=== PATIENT | female | born 1985 | race Caucasian/White ===

== ENCOUNTER 2017-02-03 05:07 | Day surgery (SDC) | payer MEDICAID ==
[~2017-02-03 05:07] MED LIST: ALEVE220 M4 PO; CEFDINIR300 M1 PO; HAIR/SKIN/NAILS PO; [UNRECOGNIZED DRUG - OTHER]
[2017-02-03 06:05] LABS: HCT-HEMATOCRIT 34.3 % (34.0-49.0); HGB-HEMOGLOBIN 11.4 gm/dl (12.0-15.5); MCV (MEAN CELL VOLUME) 84.5 fl (82.0-96.0); RED CELL DISTRIBUTION WIDTH 15.8 % (12.4-16.4)
== END 2017-02-03 11:15 ==
LOC: SRG 05:07 → SHSB 05:15 → ORE 07:04 → PACU 07:45 → SHSB 09:34
PROVIDERS: Anesthesiology
PROC: 09960ZZ Drainage of Left Middle Ear, Open Approach (ICD-10-PCS; principal; 2017-02-03)
PROC: 09950ZZ Drainage of Right Middle Ear, Open Approach (ICD-10-PCS; 2017-02-03)
PROC: 097G7ZZ Dilation of Left Eustachian Tube, Via Natural or Artificial Opening (ICD-10-PCS; 2017-02-03)
PROC: 097F7ZZ Dilation of Right Eustachian Tube, Via Natural or Artificial Opening (ICD-10-PCS; 2017-02-03)
DX: H69.83 Other specified disorders of Eustachian tube, bilateral (principal); H65.01 Acute serous otitis media, right ear; H90.2 Conductive hearing loss, unspecified; Z79.2 Long term (current) use of antibiotics
CPT/HCPCS: C1726; J0171; J1170; J1885; J3010